=== PATIENT | female | born 1965 | race Caucasian/White ===

== ENCOUNTER 2022-08-27 10:26 | Emergency (ER) | payer MEDICARE, OTHER ==
[~2022-08-27] VITALS: Ht 165.1 cm; Wt 90.7 kg
[2022-08-27 11:38] LABS: BASOPHILS ABSOLUTE AUTO 0.06 K/mm3 (0.00-0.23); BASOPHILS PERCENT AUTO 2 % (0-2); EOSINOPHILS PERCENT AUTO 3 % (0-6); Hematocrit 45.6 % (33.0-51.0); Hemoglobin 14.4 g/dL (11.5-16.0); IMMATURE GRAN ABSOLUTE AUTO 0.02 K/mm3 (0.00-0.10); IMMATURE GRAN PERCENT AUTO 1 % (0-1); LYMPHOCYTES ABSOLUTE AUTO 1.02 K/mm3 (0.84-5.20); LYMPHOCYTES PERCENT AUTO 28 % (21-46); MONOCYTES PERCENT AUTO 5 % (4-13); Mean Corpuscular HGB 28.9 pg (26.0-34.0); Mean Corpuscular HGB Conc 31.6 g/dL (31.5-36.5); Mean Corpuscular Volume 92 fL (80-100); Mean Platelet Volume 10.6 fL (9.1-12.4); NEUTROPHILS ABSOLUTE AUTO 2.28 K/mm3 (1.96-9.15); NEUTROPHILS PERCENT AUTO 62 % (41-73); Platelet Count 89 K/mm3 (150-400); RDW Coefficient Variation 16.4 % (11.7-14.2); RDW Standard Deviation 55.3 fL (35.1-46.3); Red Blood Cell Count 4.98 M/mm3 (3.80-5.20); White Blood Cell Count 3.68 K/mm3 (4.00-11.30)
[2022-08-27 12:06] LABS: Albumin, Blood 3.3 g/dL (3.4-5.0); Albumin/Globulin Ratio 0.8 (0.8-1.8); Bilirubin, Total 0.3 mg/dL (0.1-1.0); Bun/Creatinine Ratio 11.5 (12.0-20.0); Calcium, Blood 8.6 mg/dL (8.5-10.1); Creatinine, Blood 1.04 mg/dL (0.40-1.00); Globulin, Blood 4.3 g/dL (2.2-4.0); Total Protein, Blood 7.6 g/dL (6.4-8.2)
[2022-08-27] MEDS ORDERED: PREGABALIN100 MG PO (14:45)
[2022-08-27] MEDS ORDERED: SPIRONOLACTONE25 MG PO (14:45)
[2022-08-27] MEDS ORDERED: FUROSEMIDE20 MG PO (14:45)
[2022-08-27] MEDS ORDERED: XIFAXAN550 MG PO (14:45)
[2022-08-27] MEDS ORDERED: EUTHYROX25 MC1 PO (14:46)
[2022-08-27] MEDS ORDERED: CONSTULOSE10 GM/155 PO (14:46)
[2022-08-27] MEDS ORDERED: TRAZ150T57 PO (14:47)
[2022-08-27] MEDS ORDERED: PANT20 PO (14:47)
[2022-08-27] MEDS ORDERED: BEVESPI AEROS10.7 G1 IH (14:49)
[2022-08-27] MEDS ORDERED: NYSTOP15 GM TOP (14:49)
[2022-08-27] MEDS ORDERED: HYDR1TAB94 PO (15:59)
== END 2022-08-27 17:07 | disposition home or self-care (01) ==
LOC: ER 10:26
PROVIDERS: Physician Assistant
DX: N93.9 Abnormal uterine and vaginal bleeding, unspecified (principal); D69.6 Thrombocytopenia, unspecified; D72.819 Decreased white blood cell count, unspecified; Z88.8 Allergy status to other drugs, medicaments and biological substances
CPT/HCPCS: 36415; 76830; 76856; 80053; 85025

== ENCOUNTER 2022-11-04 06:58 | Inpatient (IN) | payer MEDICARE, OTHER ==
[~2022-11-04] VITALS: Ht 162.6 cm; Wt 87.0 kg
[~2022-11-04 06:58] MED LIST: BEVESPI AEROS10.7 G1 IH; CONSTULOSE10 GM/155 PO; EUTHYROX25 MC1 PO; FUROSEMIDE20 MG PO; HYDR1TAB94 PO; HYDROCODONE-AC1 EAC7 PO; MISO200 PO; NYSTOP15 GM TOP; PANT20 PO; PREGABALIN100 MG PO; SPIRONOLACTONE25 MG PO; TRAZ150T57 PO; XIFAXAN550 MG PO
--- NOTE | 2022-11-04 08:02 | NUR ---
Ambulatory in Day Surgery. Surgical site prepped with 2% Chlorhexidine cloth wipe. History, Chart, Medications and Allergies reviewed before start of procedure. Lungs clear T/O to Auscultation. Patient reports completing Chlorhexadine shower X2 prior to admission to hospital.
[2022-11-04 14:00] LABS: BASOPHILS ABSOLUTE AUTO 0.01 K/mm3 (0.00-0.23); BASOPHILS PERCENT AUTO 0 % (0-2); EOSINOPHILS PERCENT AUTO 0 % (0-6); Hematocrit 40.5 % (33.0-51.0); Hemoglobin 13.4 g/dL (11.5-16.0); IMMATURE GRAN ABSOLUTE AUTO 0.01 K/mm3 (0.00-0.10); IMMATURE GRAN PERCENT AUTO 0 % (0-1); LYMPHOCYTES ABSOLUTE AUTO 0.33 K/mm3 (0.84-5.20); LYMPHOCYTES PERCENT AUTO 7 % (21-46); MONOCYTES ABSOLUTE AUTO 0.05 K/mm3 (0.16-1.47); MONOCYTES PERCENT AUTO 1 % (4-13); Mean Corpuscular HGB 30.5 pg (26.0-34.0); Mean Corpuscular HGB Conc 33.1 g/dL (31.5-36.5); Mean Corpuscular Volume 92 fL (80-100); Mean Platelet Volume 12.4 fL (9.1-12.4); NEUTROPHILS PERCENT AUTO 92 % (41-73); RDW Coefficient Variation 14.5 % (11.7-14.2); RDW Standard Deviation 49.4 fL (35.1-46.3)
[2022-11-04 14:08] LABS: Platelet Count 49 K/mm3 (150-400)
--- NOTE | 2022-11-04 14:18 | NUR ---
NOTIFIED DR. ZAMAN OF CRITICAL PLATLETS, ORDERS RECIEVED TO ADMINISTER PLATLETS ORDERED FOR PATIENT. NOTIFIED PRIMARY RN.
--- NOTE | 2022-11-04 19:02 | NUR ---
SHIFT SUMMARY PATIENT NEW ADMIT TO UNIT FROM PACU POST OP DAY [address] ZAMAN. DROWSY WITH LOW RESP DRIVE REQUIRING 3-5 L VIA NC TO KEEP SATS AT 92%. REPORTS SEVERE ABD PAIN, MEDICATED PRN WITH PO NORCO, SEE EMAR. LAP SITES X2 WITH SCANT DRAINAGE, BANDAIDS IN PLACE. SMALL AMOUNT OF SS SPOTTING TO MICA PAD, REPLACED X1. PATIENT REPORTS HEADACHE AND MILD NAUSEA. ABLE TO SIT AT EDGE OF BED AND STAND ONCE. NO STEPS TAKEN. DURAN IN PLACE. LOW PO INTAKE OF FOOD, TOLERATING MODERATE INTAKE OF WATER. LOW URINE OUTPUT IN DURAN, BLADDER SCAN REVEALS NO RETENTION. CRITICAL LOW PLATELETS CALLED FORM LAB THIS SHIFT. OBTAINED ORDER FOR TRANSFUSION OF 1 UNIT PLATELETS. PATIENT TOLERATED TRANSFUSION. REPORT GIVEN TO CIRCULATION DIRECTOR RN.
--- NOTE | 2022-11-04 22:07 | NUR ---
CONTACTING MD CALL PLACED TO DR ZAMAN [address] NIX AT 2149, UNABLE TO CONTACT AT THESE TIMES. CALL WAS BEING PLACED TO UPDATE DR ABOUT PT REQUIRING 5-6 L O2 VIA NC AND LOW URINE OUTPUT. PLAN TO CONTACT WITH FURTHER CONCERNS
--- NOTE | 2022-11-04 23:44 | NUR ---
ARRIVAL PT ARRIVED TO THE FLOOR IN NO DISTRESS, A/OX4. C/O LLQ AND RUQ DISCOMFORT. REPORTS FOUL STOOL SMELLING EMESIS, NO EMESIS NOTED SINCE ARRIVAL TO FLOOR. REFUSED NG TUBE PLACEMENT AT THIS TIME, PT EDUCATED AND UNDERSTANDS THE IMPORTANCE OF THIS INTERVENTION. REPORTS A POOR EXPERIENCE WITH PREVIOUS NG TUBE PLACEMENT. HYPERACTIVE BOWEL TONES NOTED, PT DENIES PASSING FLATTUS BUT DOES REPORT BM BEFORE COMING TO ER. VSS, BP NOTED TO BE SLIGHTLY ELEVATED. HX HTN. PT WILL REMAIN NPO T/O THE NIGHT D/T SBO AND POSSIBLE SURGERY. PT DENIES NEED FOR PAIN MEDS AT THIS TIME. SCD'S ON, MAITENECE FLUIDS RUNNING, CALL LIGHT IN REACH.
--- NOTE | 2022-11-05 04:23 | NUR ---
POD1 FOR LAP HYSTER. X2 LAP SITES ARE C/D/I. MINIMAL BLEEDING NOTED T/O THE NIGHT. VSS. PT SLEPT ON AND OFF T/O THE NIGHT. WEANED OFF OF 5L O2 TO RA, SATS 90-91%. PT STATES THIS IS HER NORMAL, DENIES SOB OR CP. ENCOURAGED I.S USE T/O THE NIGHT. DURAN REMOVED, PT VOIDING W/O DIFFICUTY. PT AMBULATING TO BATHROOM SBA WITH FWW. MEDICATED FOR PAIN WITH NORCO T/O THE NIGHT. PLAN FOR PT TP D/C HOME TODAY. THE PATIENT IS CURRENTLY RESTINGIN BED IN NO DISTRESS, CALL LIARCELIA IN REACH
--- NOTE | 2022-11-05 10:43 | NUR ---
DISCHARGE SUMMARY PATIENT ALERT AND ORIENTED. TOLERATING REGULAR DIET AND LIQUIDS. AMBULATING IN ROOM. VOIDING WELL. PAIN CONTROLLED WITH PO PAIN MEDS. VSS ON RA. LAP SITES X2 C/D/I. SCANT SPOTTING TO MICA PAD, CHANGED PRN. DISCHARGE ORDER IN CHART. DISCHARGE EDUCATION GIVEN ON INCISION CARE, ACTIVITY, NEW RXS, AND FOLLOW UP APPTS. IV'S DC'D WNL. PATIENT LEFT UNIT AT 1040 VIA WHEELCHAIR FOR HOME WITH FRIEND.
== END 2022-11-05 10:46 | disposition home or self-care (01) | DRG 743 ==
LOC: SURS 06:58 → PRE IP 08:30 → SURS 11:56
PROVIDERS: ADMIT Obstetrics & Gynecology
PROC: 30233N1 Transfusion of Nonautologous Red Blood Cells into Peripheral Vein, Percutaneous Approach (ICD-10-PCS; 2022-11-04)
PROC: 30233R1 Transfusion of Nonautologous Platelets into Peripheral Vein, Percutaneous Approach (ICD-10-PCS; 2022-11-04)
PROC: 0UT9FZZ Resection of Uterus, Via Natural or Artificial Opening With Percutaneous Endoscopic Assistance (ICD-10-PCS; principal; 2022-11-04 08:30)
PROC: 0UB77ZZ Excision of Bilateral Fallopian Tubes, Via Natural or Artificial Opening (ICD-10-PCS; 2022-11-04 08:30)
DX: N95.0 Postmenopausal bleeding (principal); N94.89 Other specified conditions associated with female genital organs and menstrual cycle; B19.20 Unspecified viral hepatitis C without hepatic coma; K74.60 Unspecified cirrhosis of liver; E05.90 Thyrotoxicosis, unspecified without thyrotoxic crisis or storm; F12.10 Cannabis abuse, uncomplicated; Z79.01 Long term (current) use of anticoagulants; Z98.890 Other specified postprocedural states; Z79.891 Long term (current) use of opiate analgesic; Z86.79 Personal history of other diseases of the circulatory system; Z79.899 Other long term (current) drug therapy; Z88.8 Allergy status to other drugs, medicaments and biological substances
CPT/HCPCS: 36415; 85025; 86850; 86900; 86901; 86923; A9270; J0690; J1100; J2250; J2405; J2704; J2710; J3010; J7120; P9053

== ENCOUNTER → 2023-09-13 | Outpatient (CLI) | payer MEDICARE, OTHER ==
[2023-09-13 13:42] LABS: Source, Urine Clean Catch
[2023-09-13 18:38] LABS: Appearance, Urine Turbid (Clear); Bilirubin, Urine Neg (Neg); Blood, Urine 1+ (Neg); Color, Urine Yellow (P-Yellow); Glucose Qualitative, Urine Neg (Neg); Ketones, Urine 1+ (Neg); Leukocyte Esterase, Urine 2+ (Neg); Nitrite, Urine Neg (Neg); Protein, Urine 2+ (Neg); Specific Gravity, Urine 1.025 (1.003-1.022); Urobilinogen, Urine 1+ (Normal)
[2023-09-13 18:50] LABS: Amorphous Mod (0-Heavy); Bacteria Many /hpf; Red Blood Cells, Urine 0-2 /hpf (0-2); Squamous Epithelial Cells Few /hpf (Few); White Blood Cells, Urine 0-2 /hpf (0-5)
== END ==
LOC: LAB SHORT 13:41 → LAB 13:41
PROVIDERS: Student in an Organized Health Care Education/Training Program
DX: I10 Essential (primary) hypertension (principal)
CPT/HCPCS: 81001

== ENCOUNTER 2023-10-05 12:34 | Emergency (ER) | payer MEDICARE, OTHER ==
[~2023-10-05] VITALS: Wt 74.8 kg
[2023-10-05 12:39] VITALS: BP 137/99
[2023-10-05 13:22] LABS: BASOPHILS ABSOLUTE AUTO 0.03 K/mm3 (0.00-0.23); BASOPHILS PERCENT AUTO 0 % (0-2); EOSINOPHILS ABSOLUTE AUTO 0.04 K/mm3 (0.00-0.68); EOSINOPHILS PERCENT AUTO 1 % (0-6); Hematocrit 43.1 % (33.0-51.0); Hemoglobin 14.1 g/dL (11.5-16.0); IMMATURE GRAN ABSOLUTE AUTO 0.02 K/mm3 (0.00-0.10); IMMATURE GRAN PERCENT AUTO 0 % (0-1); LYMPHOCYTES ABSOLUTE AUTO 1.35 K/mm3 (0.84-5.20); LYMPHOCYTES PERCENT AUTO 19 % (21-46); MONOCYTES ABSOLUTE AUTO 0.37 K/mm3 (0.16-1.47); MONOCYTES PERCENT AUTO 5 % (4-13); Mean Corpuscular HGB 29.6 pg (26.0-34.0); Mean Corpuscular HGB Conc 32.7 g/dL (31.5-36.5); Mean Corpuscular Volume 91 fL (80-100); Mean Platelet Volume 11.9 fL (9.1-12.4); NEUTROPHILS ABSOLUTE AUTO 5.38 K/mm3 (1.96-9.15); NEUTROPHILS PERCENT AUTO 75 % (41-73); Platelet Count 99 K/mm3 (150-400); RDW Coefficient Variation 13.3 % (11.7-14.2); RDW Standard Deviation 44.4 fL (35.1-46.3); Red Blood Cell Count 4.76 M/mm3 (3.80-5.20); White Blood Cell Count 7.19 K/mm3 (4.00-11.30)
[2023-10-05 13:45] LABS: Albumin, Blood 3.6 g/dL (3.4-5.0); Albumin/Globulin Ratio 0.8 (0.8-1.8); Bilirubin, Total 0.8 mg/dL (0.1-1.0); Bun/Creatinine Ratio 15.4 (12.0-20.0); Calcium, Blood 9.9 mg/dL (8.5-10.1); Creatinine, Blood 1.04 mg/dL (0.40-1.00); Globulin, Blood 4.7 g/dL (2.2-4.0); Potassium, Blood 4.3 mmol/L (3.5-5.5); Total Protein, Blood 8.3 g/dL (6.4-8.2)
== END 2023-10-05 15:17 | disposition home or self-care (01) ==
LOC: ER 12:34
PROVIDERS: Physician Assistant
DX: R00.2 Palpitations (principal); T38.0X5A Adverse effect of glucocorticoids and synthetic analogues, initial encounter; M79.644 Pain in right finger(s); Z88.0 Allergy status to penicillin; Z88.5 Allergy status to narcotic agent; Z88.8 Allergy status to other drugs, medicaments and biological substances; Z79.899 Other long term (current) drug therapy; Z79.890 Hormone replacement therapy
CPT/HCPCS: 71046; 80053; 85025; 93005; 93010; 99284-25

== ENCOUNTER 2023-10-07 14:44 | Emergency (ER) | payer MEDICARE, OTHER ==
[~2023-10-07] VITALS: Ht 162.6 cm; Wt 90.7 kg
[2023-10-07 15:32] LABS: BASOPHILS ABSOLUTE AUTO 0.02 K/mm3 (0.00-0.23); BASOPHILS PERCENT AUTO 0 % (0-2); EOSINOPHILS ABSOLUTE AUTO 0.02 K/mm3 (0.00-0.68); EOSINOPHILS PERCENT AUTO 0 % (0-6); Hemoglobin 12.8 g/dL (11.5-16.0); IMMATURE GRAN ABSOLUTE AUTO 0.03 K/mm3 (0.00-0.10); IMMATURE GRAN PERCENT AUTO 0 % (0-1); LYMPHOCYTES ABSOLUTE AUTO 1.57 K/mm3 (0.84-5.20); LYMPHOCYTES PERCENT AUTO 18 % (21-46); MONOCYTES ABSOLUTE AUTO 0.62 K/mm3 (0.16-1.47); MONOCYTES PERCENT AUTO 7 % (4-13); Mean Corpuscular HGB 29.9 pg (26.0-34.0); Mean Corpuscular HGB Conc 33.7 g/dL (31.5-36.5); Mean Corpuscular Volume 89 fL (80-100); Mean Platelet Volume 11.8 fL (9.1-12.4); NEUTROPHILS ABSOLUTE AUTO 6.69 K/mm3 (1.96-9.15); NEUTROPHILS PERCENT AUTO 75 % (41-73); Platelet Count 94 K/mm3 (150-400); RDW Coefficient Variation 13.8 % (11.7-14.2); RDW Standard Deviation 44.7 fL (35.1-46.3); Red Blood Cell Count 4.28 M/mm3 (3.80-5.20); White Blood Cell Count 8.95 K/mm3 (4.00-11.30)
[2023-10-07 15:49] LABS: Albumin/Globulin Ratio 0.8 (0.8-1.8); Calcium, Blood 8.2 mg/dL (8.5-10.1); Creatinine, Blood 0.8 mg/dL (0.40-1.00); Potassium, Blood 3.2 mmol/L (3.5-5.5)
[2023-10-07 16:20] LABS: Influenza A, PCR NEGATIVE (NEGATIVE); Influenza B, PCR NEGATIVE (NEGATIVE); Resp Syncytial Virus, PCR NEGATIVE (NEGATIVE); SARS-Cov-2 (COVID-19) PCR, MMC NEGATIVE (NEGATIVE)
[2023-10-07 17:30] VITALS: BP 155/102
[2023-10-07] MEDS ORDERED: ONDA4ODT MM (17:33)
== END 2023-10-07 18:29 | disposition home or self-care (01) ==
LOC: ER 14:44
PROVIDERS: Student in an Organized Health Care Education/Training Program
DX: R11.2 Nausea with vomiting, unspecified (principal); R19.7 Diarrhea, unspecified; R10.13 Epigastric pain; R06.02 Shortness of breath; Z88.5 Allergy status to narcotic agent; Z88.0 Allergy status to penicillin; Z88.6 Allergy status to analgesic agent; Z88.8 Allergy status to other drugs, medicaments and biological substances; Z79.899 Other long term (current) drug therapy
CPT/HCPCS: 0241U; 71046; 80053; 83690; 85025; 93005; 93010; 96374; 99285-25; A9270; J0780

== ENCOUNTER → 2023-10-28 | Outpatient (CLI) | payer MEDICARE, OTHER ==
[~2023-10-28] MED LIST changes: +ONDA4ODT MM
[2023-10-28 19:08] LABS: CHOL/HDL RATIO 3.9; Cholesterol 228 mg/dL (50-200); Free Thyroxine 2.07 ng/dL (0.70-1.60); HDL Cholesterol 59 mg/dL (>39); LDL/HDL RATIO 2.6; Low Density Lipoprotein Chol 154 mg/dL (0-110); Triglycerides 76 mg/dL (30-160); Very Low Density Lipoprot Chol 15 mg/dL (6-32)
[2023-10-28 19:12] LABS: Thyroid Stimulating Hormone 0.058 uIU/mL (0.360-4.800)
[2023-10-30 08:07] LABS: A/G RATIO 1.2 (1.2-2.2); BILIRUBIN, TOTAL 0.6 mg/dL (0.0-1.2); CALCIUM, SERUM 9.2 mg/dL (8.7-10.3); CREATININE, SERUM 1.02 mg/dL (0.57-1.00); GLOBULIN, TOTAL 3.4 g/dL (1.5-4.5); POTASSIUM, SERUM 4.3 mmol/L (3.5-5.2); PROTEIN, TOTAL, SERUM 7.5 g/dL (6.0-8.5)
== END | disposition home or self-care (01) ==
LOC: LAB 17:41 → LAB SHORT 17:41
PROVIDERS: Student in an Organized Health Care Education/Training Program
DX: E03.9 Hypothyroidism, unspecified (principal); I10 Essential (primary) hypertension; E78.5 Hyperlipidemia, unspecified
CPT/HCPCS: 80053; 80061; 84439; 84443

== ENCOUNTER → 2024-06-19 | Outpatient (CLI) | payer MEDICARE, OTHER ==
[2024-06-19 15:51] LABS: Bun/Creatinine Ratio 12.5 (12.0-20.0); Calcium, Blood 9.4 mg/dL (8.5-10.1); Creatinine, Blood 0.88 mg/dL (0.40-1.00); Free Thyroxine 2.36 ng/dL (0.70-1.60); Potassium, Blood 3.3 mmol/L (3.5-5.5); Thyroid Stimulating Hormone 0.138 uIU/mL (0.360-4.800)
== END ==
LOC: LAB SHORT 09:20 → LAB 09:20
PROVIDERS: Physician Assistant
DX: E03.9 Hypothyroidism, unspecified (principal); E87.6 Hypokalemia
CPT/HCPCS: 80048; 84439; 84443

== ENCOUNTER → 2024-12-13 | Outpatient (CLI) | payer MEDICARE, OTHER ==
[2024-12-13 16:43] LABS: BASOPHILS ABSOLUTE AUTO 0.02 K/mm3 (0.00-0.23); BASOPHILS PERCENT AUTO 0 % (0-2); EOSINOPHILS PERCENT AUTO 2 % (0-6); Hematocrit 38.4 % (33.0-51.0); Hemoglobin 12.5 g/dL (11.5-16.0); IMMATURE GRAN ABSOLUTE AUTO 0.01 K/mm3 (0.00-0.10); IMMATURE GRAN PERCENT AUTO 0 % (0-1); LYMPHOCYTES ABSOLUTE AUTO 1.12 K/mm3 (0.84-5.20); LYMPHOCYTES PERCENT AUTO 25 % (21-46); MONOCYTES ABSOLUTE AUTO 0.22 K/mm3 (0.16-1.47); MONOCYTES PERCENT AUTO 5 % (4-13); Mean Corpuscular HGB 29.9 pg (26.0-34.0); Mean Corpuscular HGB Conc 32.6 g/dL (31.5-36.5); Mean Corpuscular Volume 92 fL (80-100); NEUTROPHILS ABSOLUTE AUTO 3.09 K/mm3 (1.96-9.15); NEUTROPHILS PERCENT AUTO 68 % (41-73); RDW Coefficient Variation 14.6 % (11.7-14.2); RDW Standard Deviation 49.2 fL (35.1-46.3); Red Blood Cell Count 4.18 M/mm3 (3.80-5.20); White Blood Cell Count 4.56 K/mm3 (4.00-11.30)
[2024-12-13 17:00] LABS: Albumin, Blood 3.6 g/dL (3.4-5.0); Albumin/Globulin Ratio 0.9 (0.8-1.8); Bilirubin, Total 0.5 mg/dL (0.1-1.0); Bun/Creatinine Ratio 13.2 (12.0-20.0); Calcium, Blood 8.9 mg/dL (8.5-10.1); Creatinine, Blood 1.14 mg/dL (0.40-1.00); Globulin, Blood 4.1 g/dL (2.2-4.0); Potassium, Blood 3.4 mmol/L (3.5-5.5); Total Protein, Blood 7.7 g/dL (6.4-8.2)
[2024-12-13 17:02] LABS: Mean Platelet Volume 11.1 fL (9.1-12.4); Platelet Count 71 K/mm3 (150-400)
== END ==
LOC: LAB 16:39 → LAB SHORT 16:39
PROVIDERS: Emergency Medicine
DX: R06.02 Shortness of breath (principal)
CPT/HCPCS: 80053; 83880; 84484; 85025

== ENCOUNTER 2025-04-02 08:52 | Day surgery (SDC) | payer MEDICARE, OTHER ==
[2025-04-02] VITALS (12 sets, daily range): BP systolic 85–129; BP diastolic 51–82
[~2025-04-02] VITALS: Ht 157.5 cm; Wt 81.2 kg
[~2025-04-02 08:52] MED LIST changes: +ALBU90OI INH; +Flonase 0.05% N16 GM; +LEVSOD112 PO; +PANT40 PO; +PREG150 PO; +SPIR50 PO; +TURMERIC500 M2 PO; +Vitamin D1000 UNI1 PO
[2025-04-02] MEDS ORDERED: Benzocaine Oral Spray 0.5ML UD ONE (09:53)
--- NOTE | 2025-04-02 09:57 | NUR ---
04/02/25 0957 Elise Camarillo CONFIRMED AND REVIEWED H&P, MEDCICATIONS, ALLERGIES, MEDICAL HISTORY, RESPIRATORY HISTORY, VITAL SIGNS, 3-LEAD EKG, CONSENTS, AND PHYSICIAN ORDERS. PATIENT CONFIRMS NPO STATUS AND AGREES WITH SCHEDULED PROCEDURE. MONITOR INTACT WITH CONTINUOUS PULSE OXIMETRY, CAPNOGRAPHY, 3-LEAD EKG, INTERMITTENT BP. SUPPLEMENTAL O2 TO BE TITRATED THROUGHOUT PROCEDURE TO MAINTAIN O2 SATURATION ABOVE 90%. PATIENT DETERMINED TO BE ASA APPROPRIATE FOR PROPOFOL SEDATION PRIOR TO START OF PROCEDURE BY DR. LOVE. Bite Block Placed. HURRICAINE SPRAY TO OROPHARYX.
[2025-04-02] MEDS ORDERED: Midazolam HCl 1MG / ML 2ML Vial ONE (10:09)
--- NOTE | 2025-04-02 10:56 | NUR ---
TO STEP POST PROCEDURE. A/O X 3, DENIES PAIN, NAUSEA, SOB. SPO2 88-91% BASELINE FOR PT. SCOOBY PO WELL. UMPQUA RIDES TO PICK PT UP AT 1200. 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 DC'D IV INTACT.
== END 2025-04-02 12:00 | disposition home or self-care (01) ==
LOC: ORSCMMR 08:52 → ORD 10:30 → ORSCMMR 10:30
PROVIDERS: Internal Medicine Gastroenterology
PROC: 0DJ08ZZ Inspection of Upper Intestinal Tract, Via Natural or Artificial Opening Endoscopic (ICD-10-PCS; principal; 2025-04-02 10:30)
DX: K76.6 Portal hypertension (principal); Z87.19 Personal history of other diseases of the digestive system; Z86.19 Personal history of other infectious and parasitic diseases; K21.9 Gastro-esophageal reflux disease without esophagitis; E03.9 Hypothyroidism, unspecified; K74.60 Unspecified cirrhosis of liver; Z79.899 Other long term (current) drug therapy
CPT/HCPCS: A9270; J2250; J2704; J7120

== ENCOUNTER → 2025-09-30 | Outpatient (CLI) | payer MEDICARE, OTHER ==
[2025-09-30 18:17] LABS: BASOPHILS ABSOLUTE AUTO 0.03 K/mm3 (0.00-0.23); BASOPHILS PERCENT AUTO 1 % (0-2); EOSINOPHILS ABSOLUTE AUTO 0.15 K/mm3 (0.00-0.68); EOSINOPHILS PERCENT AUTO 5 % (0-6); Hematocrit 39.9 % (33.0-51.0); Hemoglobin 12.7 g/dL (11.5-16.0); IMMATURE GRAN ABSOLUTE AUTO 0.00 K/mm3 (0.00-0.10); IMMATURE GRAN PERCENT AUTO 0 % (0-1); LYMPHOCYTES ABSOLUTE AUTO 1.25 K/mm3 (0.84-5.20); LYMPHOCYTES PERCENT AUTO 42 % (21-46); MONOCYTES ABSOLUTE AUTO 0.15 K/mm3 (0.16-1.47); MONOCYTES PERCENT AUTO 5 % (4-13); Mean Corpuscular HGB Conc 31.8 g/dL (31.5-36.5); Mean Corpuscular Volume 92 fL (80-100); NEUTROPHILS ABSOLUTE AUTO 1.41 K/mm3 (1.96-9.15); NEUTROPHILS PERCENT AUTO 47 % (41-73); NRBC ABSOLUTE 0.00 K/mm3 (0.00-0.02); NRBC Auto 0.0 /100 WBC (0.0-0.2); Platelet Count 65 K/mm3 (150-400); RDW Coefficient Variation 13.6 % (11.7-14.2); RDW Standard Deviation 46.5 fL (35.1-46.3)
[2025-09-30 19:14] LABS: Alanine Aminotransfer (ALT/SGP 18 U/L (12-78); Albumin, Blood 3.4 g/dL (3.4-5.0); Albumin/Globulin Ratio 0.9 (0.8-1.8); Anion Gap 7 mmol/L (3-11); Aspartate Aminotrans (AST/SGOT 19 U/L (12-37); Bilirubin, Total 0.7 mg/dL (0.1-1.0); Blood Urea Nitrogen 12 mg/dL (8-24); CHOL/HDL RATIO 3.9; CO2, Blood 31 mmol/L (21-32); Calcium, Blood 8.8 mg/dL (8.5-10.1); Chloride, Blood 104 mmol/L (98-108); Cholesterol 185 mg/dL (50-200); Creatinine, Blood 1.10 mg/dL (0.40-1.00); Globulin, Blood 3.8 g/dL (2.2-4.0); Glucose, Blood 88 mg/dL (70-99); HDL Cholesterol 47 mg/dL (>39); LDL/HDL RATIO 2.6; Low Density Lipoprotein Chol 123 mg/dL (0-110); Potassium, Blood 3.9 mmol/L (3.5-5.5); Sodium, Blood 138 mmol/L (136-145); Thyroid Stimulating Hormone 0.273 uIU/mL (0.360-4.800); Total Protein, Blood 7.2 g/dL (6.4-8.2); Triglycerides 76 mg/dL (30-160); Very Low Density Lipoprot Chol 15 mg/dL (6-32)
== END ==
LOC: LAB SHORT 17:22 → LAB 17:22
DX: E03.9 Hypothyroidism, unspecified (principal)
CPT/HCPCS: 80053; 80061; 84443; 85025